=== PATIENT | female | born 1955 | race Caucasian/White ===

== ENCOUNTER 2022-07-11 03:47 | Emergency (ER) | payer OTHER, SELFPAY ==
[2022-07-11 04:03] VITALS: BP 137/78; PULSE 81; RESP 18; TEMP 36.6; O2SAT 98; BMI 29.3
--- NOTE | 2022-07-11 05:32 | ED_ITS ---
HPI - General Adult General Chief complaint: Allergic Reaction Stated complaint: swollen face/hives, possible allergic reaction Time Seen by Provider: 07/11/22 05:23 Source: patient Mode of arrival: ambulatory Limitations: no limitations History of Present Illness HPI narrative: 67-year-old female who presents emergency department for evaluation of redness to the cheeks of her face. She states that she 1st noted the redness to her left cheek. She thought that maybe she was bitten by a bug but did not remember or see any insects. She states that the redness has spread from the left cheek to the right cheek. She states that the redness is very warm to the touch and is slightly painful. She has been applying ice without any relief of her symptoms. She denied headache, nausea, vomiting, fatigue, fever or chills. Related Data Previous Rx's Medication Instructions Recorded cephalexin 500 mg capsule 500 mg PO QID 5 days #20 caps 07/11/22 doxycycline hyclate 100 mg tablet 100 mg PO Q12H 5 days #10 tabs 07/11/22 Allergies Allergy/AdvReac Type Severity Reaction Status Date / Time amoxicillin [Augmentin] Allergy Unknown rash Verified 01/20/19 00:00 clavulanic acid [Augmentin] Allergy Unknown rash Verified 01/20/19 00:00 Penicillins [PENICILLINS] Allergy Unknown RASH/HIVES Unverified 11/22/19 15:36 Review of Systems Review of Systems: Yes all other systems are reviewed and are negative [facility] Past Medical History [facility] Narrative: Past medical history: None. Social history: She denies tobacco, alcohol and drug use. Social History Social History Advance Directives: No Advance Directives Information Provided: Yes Physical Exam ED Vital Signs: Vital Signs - 24 hr 07/11/22 04:03 Temperature 97.9 F Pulse Rate 81 Respiratory Rate 18 Blood Pressure 137/78 Pulse Oximetry 98 Oxygen Delivery Method Room Air BMI result Body Mass Index 29.3 Vital signs were normal. General: Awake, alert, female patient, very pleasant, in no distress HEENT: Patient's head is normal cephalic and atraumatic pupils were equal round reactive light, sclera contact however normal, mouth revealed moist membranes Face: The patient has erythema to the left and right zygomatic area is very face, the erythema is warm to the touch, there is no induration or flocculence, there is no breakdown of her skin. Neck: No adenopathy, supple Medical Decision Making Medical Decision Making MDM Narrative: 67-year-old female who presents emergency department for evaluation of bilateral erythema to her face which started yesterday and got progressively worse this morning. The patient did not recount any insect bite. Patient's exam did reveal a erythema with increased warmth both cheeks left greater than right with no evidence of an abscess. Patient's presentation is consistent with cellulitis. The patient was given doxycycline 100 mg orally and Keflex 500 mg orally. She was given a prescription for doxycycline 100 mg q.12 hours x5 days and Keflex 500 mg 4 times a day for 5 days. She was advised to apply heat to her cheeks for for 10-15 minutes 4 to 6 times a day. She was given printed and verbal instructions and cellulitis and discharged home. Differential Diagnosis Differential diagnosis includes but is not limited to cellulitis, allergic reaction, insect bite, contact dermatitis, nonspecific dermatitis Discharge Plan Discharge Clinical Impression: Cellulitis of face Patient Disposition: Home, Self-Care Instructions: Cellulitis (ED) Additional Instructions: Cellulitis Discharge Instructions You have an infection of your skin. This is called cellulitis. This is usually caused by bacteria on your skin that gets under your skin and then causes the infection Take Keflex 500 mg pills, 1 pill 4 times a day for 5 days. Take doxycycline 100 mg, 1 pill every 12 hours for 5 days These medications are antibiotic that should help your body fight off the infection. Apply heating pad on low or a warm compress for 15 minutes, 4-6 times a day. This will increase the blood flow to the area and will bring white blood cells to the area which will help your body fight off the infection. Take Motrin(ibuprofen) 200mg pills, 2 pills every 6 hours as needed for pain. Also take Tylenol( acetaminophen) 325 mg pills, 2 pills every 4 hours as needed for pain. Signs of worsening infection include fever, chills, weakness, increased pain, increased redness, increased swelling or red streaks going away from the area of infection. If you develop any of these symptoms or any other symptoms that are concerning to you, see your doctor immediately or return to the Emergency Department. Follow up with your doctor in 3 days for a recheck Please read the other printed instructions that we printed for you. Prescriptions: New cephalexin 500 mg capsule 500 mg PO QID 5 Days Qty: 20 0RF doxycycline hyclate 100 mg tablet 100 mg PO Q12H 5 Days Qty: 10 0RF
[2022-07-11] MEDS: Doxycycline Monohydrate 100 MG CAPSULE PO (05:50)
[2022-07-11] MEDS: cephALEXin 500 MG CAPSULE PO (05:50)
== END 2022-07-11 05:56 | disposition home or self-care (01) ==
PROVIDERS: Emergency Provider Emergency Medicine Emergency Medical Services
DX: L03.211 Cellulitis of face (principal); Z79.899 Other long term (current) drug therapy
CPT/HCPCS: 99283

== ENCOUNTER 2022-07-12 11:57 | Emergency (ER) | payer OTHER, SELFPAY ==
[2022-07-12 12:01] VITALS: BP 144/80; PULSE 90; RESP 19; TEMP 36.6; O2SAT 98; BMI 27.4
[2022-07-12 12:22] LABS: Basophils Absolute Auto 0.1 X10*3/uL (0.0-0.2); Basophils Percent Auto 0.7 % (0-2); Eosinophils Absolute Auto 0.1 X10*3/uL (0.0-0.4); Eosinophils Percent Auto 1.3 % (0-4); Hematocrit 41.3 % (37.0-47.0); Hemoglobin 13.7 g/dl (12.0-16.0); Imm Gran Abs Auto 0.01 X10*3/uL (0.00-0.03); Imm Gran Pct Auto 0.1 % (0.0-0.4); Lymphocytes Absolute Auto 2.2 X10*3/uL (1.2-4.9); Lymphocytes Percent Auto 31.9 % (20-40); MANUAL DIFF FLAG NO; Mean Corpuscular HGB Conc 33.2 g/dl (31.0-35.0); Mean Corpuscular Hemoglobin 29.8 pg (27.0-33.0); Mean Corpuscular Volume 89.8 fL (80.0-98.0); Mean Platelet Volume 9.8 fL (9.4-12.3); Monocytes Absolute Auto 0.4 X10*3/uL (0.1-1.2); Neutrophils Absolute Auto 4.1 x10*3/uL (2.0-8.3); Platelet Count 271 X10*3/uL (160-400); Red Cell Distribution Width 12.7 % (11.0-16.0); White Blood Count 6.8 X10*3/uL (4.8-10.8)
[2022-07-12 12:48] LABS: Anion Gap 16 (12-20); Blood Urea Nitrogen 16 mg/dL (9-16); Calcium 10.5 mg/dL (8.4-10.2); Carbon Dioxide 25 mmol/L (22-29); Chloride 106 mmol/L (96-108); Creatinine Clr Calc Pharmacy 53.6; Estimated Glomerular Filt Rate > 60; Glucose Random 92 mg/dL (60-115); Potassium 4.5 mmol/L (3.3-5.1); Sodium 142 mmol/L (135-145)
[2022-07-12 18:05] VITALS: BP 134/82; PULSE 87; RESP 16; TEMP 36.1; O2SAT 98
--- NOTE | 2022-07-12 18:07 | PC.NURSE ---
patient awake and alert. skin pwd. resp even and non labored. speaking in full, clear sentences. reports that she started on antibiotics yesterday at 6am for cellulitis on her left cheek r/t ?insect bite. patient reports that redness has spread since starting abt. facial erythema noted w/ slight left sided facial swelling. some areas of raised rash spread onto neck. reports rash is itchy and burning. awaiting initial physician steven.
--- NOTE | 2022-07-12 19:30 | ED_ITS ---
HPI - General Adult General Chief complaint: General Medical Stated complaint: Cellulitis Time Seen by Provider: 07/12/22 18:37 Source: patient Mode of arrival: ambulatory Limitations: no limitations History of Present Illness HPI narrative: 67-year-old female presents for facial redness and itchiness. Patient was bit by a bug on left side of her face and than redness spread and is also itchiness. Patient was seen yesterday and treated as cellulitis and given antibiotics. Patient returned today because skin is very itchy and only improves when taking Benadryl. Patient denies any swelling of lips, tongue, shortness of breath, neck swelling, or rash in extremity. Related Data Previous Rx's Medication Instructions Recorded cephalexin 500 mg capsule 500 mg PO QID 5 days #20 caps 07/11/22 doxycycline hyclate 100 mg tablet 100 mg PO Q12H 5 days #10 tabs 07/11/22 famotidine 20 mg tablet (Pepcid) 20 mg PO BID 7 days #14 tabs 07/12/22 prednisone 20 mg tablet 60 mg PO DAILY 5 days #15 tabs 07/12/22 Allergies Allergy/AdvReac Type Severity Reaction Status Date / Time amoxicillin [Augmentin] Allergy Unknown rash Verified 07/12/22 12:01 clavulanic acid [Augmentin] Allergy Unknown rash Verified 07/12/22 12:01 Penicillins [PENICILLINS] Allergy Unknown RASH/HIVES Verified 07/12/22 12:01 Review of Systems Review of Systems: facial redness Yes all other systems are reviewed and are negative PMFSH Social History Social History Alcohol intake: never Advance Directives: No Advance Directives Information Provided: Yes Physical Exam ED Vital Signs: Vital Signs - 24 hr 07/12/22 12:01 07/12/22 18:05 Temperature 98 F 96.9 F Pulse Rate 90 87 Respiratory Rate 19 16 Blood Pressure 144/80 H 134/82 Pulse Oximetry 98 98 Oxygen Delivery Method Room Air Room Air BMI result Body Mass Index 27.4 Const General: cooperative, healthy appearing, comfortable, no acute distress, well developed, alert, awake and Physically active Orientation/consciousness: oriented to person, oriented to place, oriented to time and patient oriented x3 HENMT Other: Negative for swelling of lips, tongue, or uvula. Patient speaking in full sentences Head: Yes normal to inspection, Yes No palpable skull fracture present, Yes normocephalic and Yes atraumatic Head images: 1. positive for erythema. Negative for crepitus, tenderness, mass, or swe lling on palpation. Negative for neck swelling. 2. positive for erythema. Negative for crepitus, tenderness, mass, or swelling on palpation. Negative for neck swelling. Neck Neck: Yes normal visual inspection, Yes full ROM, Yes no lymphadenopathy, Yes no meningeal signs, Yes trachea midline, Yes supple, No anterior neck swelling, No tender and No submandibular swelling Chest Chest palpation & inspection: normal inspection of the chest and normal palpation of entire chest wall Resp Effort & Inspection: normal respiratory effort and able to speak in complete sentences Auscultation: clear to auscultation bilaterally Cardio Jugular venous distension: no JVD Heart sounds: S1 normal heart sound present and S2 normal heart sound present GI Inspection: Yes normal to inspection and No abdominal wall ecchymosis Palpation (GI): Soft to palpation, not firm, nontender, no guarding and not rigid General: No CVA tenderness and Yes no CVA tenderness Back/Spine/Pelvis Back: no CVA tenderness, No CVA tenderness and No back tenderness Skin Other: erythema of face. itchy rash General skin exam: no rashes or lesions noted and elasticity normal Neuro General: oriented to person, oriented to place, oriented to time, patient oriented x3, gait normal, tone normal, moves all extremities, Normal light touch and pain sensation, no meningeal signs, no focal motor deficits, CN's II-XI intact bilaterally and normal sensation to monofilament Extrem General: Yes normal to inspection and Yes full ROM Psych Appearance: grossly normal, well kempt and not disheveled Course Course Course Narrative: facial erythema. Reevaluation(s) Reevaluation #1: this is patient's 2nd day taking antibiotics. Patient is well-appearing. Vital signs normal. Patient not in any respiratory distress. No need for admission. Negative for neck swelling or submandibular swelling. No crepitus o r tenderness on palpation of face. Not suspecting necrotizing fasciitis, erysipelas, osteomyelitis, retropharyngeal abscess, tony syed, or Davon angina. Patient informed to continue taking antibiotics as prescribed and will be discharged with prednisone and Pepcid. Patient informed to continue taking her [id number] Benadryl at home for itchiness. Negative for sloughing of skin.. Dr. Griffith agree with plan Medical Decision Making Medical Decision Making [facility] Narrative: 67-year-old female presents to the ED for re-evaluation of face. Patient knows cellulitis being treated with antibiotics. This is patient is day 2 of antibiotics. Erythema caused by insect bite and now patient complain of redness being itchy. Insect bite can cause allergic reaction and cellulitis. Patient informed to continue taking antibiotics and will be discharged with prednisone Pepcid and continue taking her home Benadryl. Patient not in any respiratory distress. Negative sloughing of skin Differential Diagnosis Differential Diagnoses: The differential diagnosis associated with the presentation includes ( Necrotizing fasciitis, osteomyelitis, cellulitis, allergic reaction, retropharyngeal abscess, Davon angina, Tony Syed syndrome,) Admission/Observation Consideration of admission/observation: Escalation of care including admission/observation considered Lab Data [facility] Lab Attestation statement: I reviewed the patient's lab results. 07/12/22 12:17 07/12/22 12:17 Labs: Lab Results 07/12/22 07/12/22 Range/Units 12:17 12:17 WBC 6.8 (4.8-10.8) X10*3/uL RBC 4.60 (4.20-5.50) X10*6/uL Hgb 13.7 (12.0-16.0) g/dl Hct 41.3 (37.0-47.0) % MCV 89.8 (80.0-98.0) fL MCH 29.8 (27.0-33.0) pg MCHC 33.2 (31.0-35.0) g/dl RDW 12.7 (11.0-16.0) % Plt Count 271 (160-400) X10*3/uL MPV 9.8 (9.4-12.3) fL Immature Gran % (Auto) 0.1 (0.0-0.4) % Neut % (Auto) 60.0 (45-73) % Lymph % (Auto) 31.9 (20-40) % Carter % (Auto) 6.0 (2-11) % Eos % (Auto) 1.3 (0-4) % Baso % (Auto) 0.7 (0-2) % Lymph # (Auto) 2.2 (1.2-4.9) X10*3/uL Carter # (Auto) 0.4 (0.1-1.2) X10*3/uL Eos # (Auto) 0.1 (0.0-0.4) X10*3/uL Baso # (Auto) 0.1 (0.0-0.2) X10*3/uL Abs Immat Gran (auto) 0.01 (0.00-0.03) X10*3/uL Absolute Neuts (auto) 4.1 (2.0-8.3) x10*3/uL Absolute Nucleated RBC 0.000 (0.0-0.012) X10*3/uL Nucleated RBC % (auto) 0.0 (0.0-0.2) /100WBC Sodium 142 (135-145) mmol/L Potassium 4.5 (3.3-5.1) mmol/L Chloride 106 (96-108) mmol/L Carbon Dioxide 25 (22-29) mmol/L Anion Gap 16 (12-20) BUN 16 (9-16) mg/dL Creatinine 0.92 (0.5-1.4) mg/dL Estim Creat Clear Calc 53.6 Estimated GFR > 60 Random Glucose 92 (60-115) mg/dL Calcium 10.5 H (8.4-10.2) mg/dL External Record Review External record reviewed: Outside ED record Prescription Management I considered prescription management with: Other (prednisone and pepcid.) Discharge Plan Discharge Clinical Impression: Allergic reaction, Cellulitis, Insect bite Patient Disposition: Home, Self-Care Instructions: Cellulitis (ED), Insect Bite or Sting (ED), General Allergic Reaction (ED), Warm Compress or Soak (ED) Additional Instructions: continue taking antibiotics he were prescribed. You will be discharged with prednisone and Pepcid to help with itchiness/allergic reaction. continue using over the counter benadryl. return to the ED immediately swelling of the lips, swelling of the tongue, swelling of the tongue, swelling of face, shortness of breath, drooling, swelling of the neck, inability to swallow, chest pain, shortness of breath, worsening redness, development of red streaks, intractable fever, chills, or any other concerning symptoms. Prescriptions: New prednisone 20 mg tablet 60 mg PO DAILY 5 Days Qty: 15 0RF famotidine [Pepcid] 20 mg tablet 20 mg PO BID 7 Days Qty: 14 0RF No Action cephalexin 500 mg capsule 500 mg PO QID 5 Days Qty: 20 0RF doxycycline hyclate 100 mg tablet 100 mg PO Q12H 5 Days Qty: 10 0RF Stand Alone Forms: Work/School Release Interventions: ED Discharge Assessment Last Done: 07/12/22 20:23 Discharge Date/Time: 07/12/22 20:23 Print Language: Hebrew
== END 2022-07-12 20:23 | disposition home or self-care (01) ==
PROVIDERS: Emergency Provider Internal Medicine; PCP Family Medicine
DX: L03.211 Cellulitis of face (principal); Z79.899 Other long term (current) drug therapy
CPT/HCPCS: 36415; 80048; 85025; 99283; 99284

== ENCOUNTER 2024-04-16 09:45 | Day surgery (SDC) | payer OTHER, SELFPAY ==
--- OUTSIDE RECORDS SUMMARY | 2024-03-21 09:47 | XMS_ITS | Data Portability ---
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 Plan of Treatment Reminders Order Date Submit Date Provider Last Modified By Organization Details Last Modified Time Details Appointments None recorded. Lab None recorded. Referral None recorded. Procedures None recorded. Surgeries None recorded. Imaging None recorded. Medication Orders Bactrim DS 800 mg-160 mg tablet 2022 023 ATHENAFAX [facility], [address] [place] [address], [phone], 3 18:40:35 mupirocin 2 % topical ointment 2022 023 ATHENAFAX [address], [address] [place] [address], [phone], 3 18:40:35 Patient TargetsNo targets recorded. Patient Instructions Encounter Date Encounter Id Patient Instructions Last Modified By Organization Details Last Modified Time 09/18/2022 [id number] skin abscess: care instructions [email or web address] Not available 09/18/2022 18:08:15 Apply a warm compress to the affected area for 15-20 minutes at a time up to 4 times a day. Not available 09/18/2022 17:24:00 Reason for Referral None Reported. Problems No Known Problems Medical Equipment None Reported. Allergies Allergen ID Allergen Name Allergen Category Reaction Reaction Severity Criticality Documentation Date Start Date Code Code System Note Provider Name and Address Organization Details Recorded Time [id number] Medicinal product containin g penicilli n and acting as antibacte rial agent (product) medicatio n angioedem a Not available Not available 09/18/2022 [id number] 05 SNOMED DIXON mittal [place] [facility] 17:28:31 Medications Name Sig Start Date Stop Date Status Note LastModified by Organization Details LastModified Time prednisone 20 mg tablet TAKE 3 TABS ORALLY DAILY FOR 5 DAYS 09/18 completed Not Available Not Available Not Available famotidine 20 mg tablet TAKE ONE TABLET BY MOUTH 2 TIMES A DAY FOR 7 DAYS 09/18 completed Not Available Not Available Not Available cephalexin 500 mg capsule TAKE 1 CAPSULE BY MOUTH 4 TIMES A DAY FOR 5 DAYS 09/18 completed Not Available Not Available Not Available mupirocin 2 % topical ointment APPLY A SMALL AMOUNT TO THE AFFECTED AREA BY TOPICAL ROUTE 3 TIMES PER DAY x 10 d 2022 active Not Available Not Available Not Avai lable doxycycline hyclate 100 mg tablet TAKE 1 TABLET BY MOUTH EVERY 12 HOURS FOR 5 DAYS 09/18 completed Not Available Not Available Not Available Bactrim DS 800 mg-160 mg tablet Take 1 tablet every 12 hours by oral route with meals for 10 days. 2022 active Not Available Not Available Not Avai lable Vitals Date Recorded Body height Body mass index (BMI) Body weight Oxygen saturation Oxygen saturation in Arterial blood by Pulse oximetry Heart rate Respiratory rate Body temperature Systolic blood pressure Diastolic blood pressure Provider Name and Address Organization Details Last Updated DateTime 3 160.02 cm 28.3 kg/m2 18716.7 8 g 99 % 99 % 89 /min 16 /min 98.2 [degF] 134 mm[Hg] 81 mm[Hg] DIXON MCCOY - [facility] 3 17:31:39 Social History Question Answer Notes LastModified by Organizat ion Details LastModified Time Tobacco Smoking Status Never Smoker DIXON mittal [place] [facility] 09/18/2022 17:29:20 What Is Your Level Of Alcohol Consumption? None Information not available 09/18/2022 Are You Currently Employed? Yes Information not available 09/18/2022 Do You Use Any Illicit Or Recreational Drugs? No Information not available 09/18/2022 Have You Recently Traveled Abroad? No Information not available 09/18/2022 Do You Or Have You Ever Used Any Other Forms Of Tobacco Or Nicotine? No Information not available 09/18/2022 Sex: Unknown Functional Status None recorded. Mental Status None recorded. Family History Relationship Description Onset Age of this Age Resolved Age Notes LastModified by Organization Details LastModified Time Mother Malignant neoplastic disease Not available 2022 17:29:02 Medical History No medical history recorded. Gynecological HistoryNo gynecological history recorded. Obstetrics History GPAL:G 0 P 0 0 0 0 Immunizations Vaccine Type Date Status Note Provider Nam e and Address Organization Details Recorded Time Influenza, split virus, quadrivalent, preservative 7 completed DIXON OLVIN null, [place] - [facility] 09/18/2022 17:29:29 Influenza, split virus, quadrivalent, preservative 8 completed DIXON OLVIN null, PA - [facility] 09/18/2022 17:29:29 Influenza, MDCK, quadrivalent, PF 6 completed DIXON OLVIN null, PA - [facility] 09/18/2022 17:29:29 zoster recombinant 0 completed DIXON OLVIN null, PA - [facility] 09/18/2022 17:29:29 zoster recombinant 9 completed DIXON OLVIN null, PA - [facility] 09/18/2022 17:29:29 COVID-19, mRNA, LNP-S, PF, 100 mcg/0.5mL dose or 50 mcg/0.25mL dose 1 completed DIXON OLVIN null, [place] - [facility] 09/18/2022 17:29:30 COVID-19, mRNA, LNP-S, PF, 100 mcg/0.5mL dose or 50 mcg/0.25mL dose 1 completed DIXON OLVIN null, [place] - [facility] 09/18/2022 17:29:30 COVID-19, mRNA, LNP-S, PF, 100 mcg/0.5mL dose or 50 mcg/0.25mL dose 1 completed DIXON OLVIN null, [place] - [facility] 09/18/2022 17:29:30 Pneumococcal conjugate PCV20, polysaccharide [id number] conjugate, adjuvant, PF 2 completed DIXON OLVIN null, [place] - [facility] 09/18/2022 17:29:30 Influenza, split virus, trivalent, preservative 2 completed DIXON OLVIN null, [place] - [facility] 09/18/2022 17:29:30 Influenza, split virus, quadrivalent, PF 9 completed DIXON OLVIN null, [place] - [facility] 09/18/2022 17:29:30 Past Encounters Encounter ID Performer Location Encounter Start Date Encounter Closed Date Diagnosis/Indication Diagnosis SNOMED-CT Code Diagnosis ICD10 Code Diagnosis Note [id number] [address] [address] [address] 10/19/2015 11:07:55 10/19/2015 11:52:00 [id number] [place] [address] [address] [address] 09/18/2022 17:14:59 09/18/2022 18:18:21 Abscess of skin and/or subcutaneous tissue 05464436 L02.91 New abscess with surroundin g celulitis. Unable to I&Drecomme nd warm compresses soaks 5-10 min 4-5 x.dwill Rx oral antibiotic s - has PCN allergy will Rx bactrimtop ical bactrobanI BU prn painkeep area clean and dry she has f/u with her PCP this week - I advised her to attend the appt. She should have an US of the axilla.f/u prn WORSENING Sx, increased erythema/p ain/fever etc.She should be referred to Gen Surg by her PCP prn no improvemen t to have I&D Discussed concerning red flags with patient and reasons to follow up in the Emergency Department urgently. Health Concerns Section Related Observation LastModified by Organization Sommer blanchard LastModified Time None Recorded Concern Status LastModified by Organization Details LastModified Time None Recorded Advance Directives Directive None Recorded Payers Encounter Date Sequence Insurance Name Policy Number Policy Smith Covered Member ID Smith Member ID Guarantor Name 10/19/2015 2 [facility] [id number] Elaina Blanca Perez [id number] Elaina Perez 09/18/2022 1 [facility] (PP[facility] Elaina Perez [id number] Elaina Perez Notes Date Note Type Note Provider Name and Address Organization Details Recorded Time 09/18/2022 text/html AbscessReported bypatient.Notes:67 yo female c/o red, swollen bump under left armpit x 3 d bikes to work every day and noticed it a few days agored, warm and tenderno bleeding or d/cno f/c/n/v no OTC meds but tried warm compresses reports last mammogram was 2-3 m ago Jamar Everett, DO [address] [place], [id number], [place] - [facility] 09/18/2022 18:38:05 OBGyn Episode No OBEpisode recorded.
--- OUTSIDE RECORDS SUMMARY | 2024-03-21 09:47 | XMS_ITS | Continuity of Care Document ---
Author Organization [facility] Address [address] [place] [address] [address] [place] [address]- Care Team Providers Care Expressive Music Therapist Name Role Phone Chuckie NELSON, Paco Carrera Primary Care Physician Encounter [facility] [place] Date(s): 01/30/24 - 02/29/[address] [place] [address]- Attending Physician: Cassius Srinivasan Admitting Physician: AdmCassius pollock Referring Physician: Admtr [id number] Encounter Type: Triage Allergies, Adverse Reactions, Alerts Substance Criticality Severity Reaction Reaction Severity Status penicillin hives Active Bactrim DS Skin rash Skin rash Active Immunizations Given and Recorded Vaccine Date Status Refusal Reason influenza virus vaccine, inactivated 01/19/24 Glen rded influenza virus vaccine, inactivated 12/07/22 Glen rded influenza virus vaccine, inactivated 12/04/21 Give n influenza virus vaccine, inactivated 12/06/18 Glen rded influenza virus vaccine, inactivated 02/23/18 Glen rded influenza virus vaccine, inactivated 11/25/16 Glen rded influenza virus vaccine, inactivated 01/07/16 Glen rded RSV vaccine, preF A-preF B, recombinant 12/13/22 R ecorded pneumococcal 20-valent conjugate vaccine 11/17/21 Given SARS-CoV-2 (COVID-19) mRNA-1273 vaccine 03/05/21 R ecorded SARS-CoV-2 (COVID-19) mRNA-1273 vaccine 05/26/20 G iven SARS-CoV-2 (COVID-19) mRNA-1273 vaccine 04/28/20 G iven Influenza Virus Vaccine (oldterm) 1 10/31/19 Recor ded Influenza Virus Vaccine (oldterm) 2 12/14/07 Given tetanus/diphtheria/pertussis, acel(Tdap) 3 09/04/19 Given zoster vaccine, inactivated 05/05/19 Recorded zoster vaccine, inactivated 02/27/19 Recorded 1Result Comment: [facility] Pharm[facility] 2Admin Note: MANU : SANOFI PASTEUR Pt meets criteria Given w/o incident Pt denies allergies and cold/flu symptoms 3Result Comment: [facility] [id number] EXP 10/12/20 Medications Flonase Allergy Relief 50 mcg/inh nasal spray See Instructions, 1 sprays Daily in each nostril, # 16 Gm, 0 Refills, Maintenance, 05/24/23 9:29:00 AM EDT, [facility]/pharmacy #[id number], Partial fill upon patient request if the prescription is for a schedule II opioid drug., 156, cm, 11/01/22 8:45:00 EDT, Height Start Date: 05/24/23 Status: Ordered Quantity: 16.0 Unit: g Repeat number: 1 Indication: Viral infection, unspecified Fosamax 70 mg oral tablet 1 tablet = 70 mg, By Mouth, Every week, # 12 tablet, 3 Refills, Maintenance, 12/02/23 11:29:00 AM EDT, Tablet, [facility]/pharmacy #[id number], Partial fill upon patient request if the prescription is for a schedule II opioid drug., 155.1, cm, 12/02/23 10:55:00 EDT, Height Start Date: 12/02/23 Status: Ordered Quantity: 12.0 Unit: tablet Repeat number: 4 Osteo Bi-Flex 1 tablet, By Mouth, Daily, 0 Refills, Maintenance, 12/02/23 10:52:00 AM EDT, Partial fill upon patient request if the prescription is for a schedule II opioid drug. Start Date: 12/02/23 Status: Ordered Repeat number: 1 Vitamin B Complex oral tablet, extended release 0.5 tablet, By Mouth, Daily, 0 Refills, Maintenance, 12/02/23 10:50:00 AM EDT, Partial fill upon patient request if the prescription is for a schedule II opioid drug. Start Date: 12/02/23 Status: Ordered Repeat number: 1 Vitamin C 1 tablet, By Mouth, Daily, 0 Refills, Maintenance, 10/28/21 3:02:00 PM EDT, Partial fill upon patient request if the prescription is for a schedule II opioid drug. Start Date: 10/28/21 Status: Ordered Repeat number: 1 Vitamin D3 oral tablet 1 tablet = 10 mcg, By Mouth, Daily, # 30 tablet, 0 Refills, Maintenance, 12/02/23 10:51:00 AM EDT, Tablet, Partial fill upon patient request if the prescription is for a schedule II opioid drug. Start Date: 12/02/23 Status: Ordered Quantity: 30.0 Unit: tablet Repeat number: 1 Wegovy (0.25 mg dose) subcutaneous solution = 0.25 mg, Subcutaneous Infusion, Every 7 days, # 2 mL, 5 Refills, Acute 12/01/24 11:40:00 AM EDT, 12/02/23 11:39:00 AM EDT, [facility]/pharmacy #[id number], Partial fill upon patient request if the prescription isfor a schedule II opioid drug., 155.1, cm, 12/02/23 10:55:00 EDT, Height Start Date: 12/02/23 Stop Date: 12/01/24 Status: Ordered Quantity: 2.0 Unit: mL Repeat number: 6 Problem List Condition Confirmation Course Effective Dates Status Health Status Informant Anxiety disorder Confirmed Active Basal cell carcinoma of skin Confirmed Active Sigmoid diverticulosis Confirmed Active Hypercholesterolemia - ASCVD risk 3.8% 09/05/2019 Confirmed Active Internal hemorrhoids Confirmed Active Obese class I Confirmed Active Postmenopausal state Confirmed Active Viral illness Confirmed Active Social History Social History Type Response Smoking Status Never (less than 100 in lifetime) entered on: 08/27/19 Sex Sex Representation Female (finding) Patient Care team information Care Team Personnel Name: Paco Noguera MD Position: S Physician - Primary Care Member Role: PCP [address]: [address] [place] [address], [place] [address]- [place] Telecom: Care Team Related Persons Name: MITRA ARREGUIN Insurance Providers Guarantor name: AUNG PERRI [facility] Information #: 1 Payer: DEEPAK ZAFAR P Member Number: NA Policy Number: NA Group Number: NA
[2024-04-12 14:32] VITALS: BMI 29.9
--- NOTE | 2024-04-13 10:48 | HO.ANESPROP2 ---
Documented by User: Vira Waller NP 04/13/24 10:48 HPI - Anesthesia Eval Consult details Narrative: 68yo F for Colonoscopy [facility] Past Medical History Medical History No pertinent past medical history Surgical History Surgical History H/O colonoscopy Social History Social History Are you a primary manager care management to a significant other at home: No Do you presently have visiting nurse or other home services: No Alcohol intake: never Patient Tobacco Use Status: Never used Tobacco Second Hand Smoke Exposure: No Use of substances other than those prescribed or required for medical reasons: No Have you been hit, kicked, punched, or otherwise hurt by someone within the past year? If so, by whom?: No Are you DNR?: No Advance Directives: No Advance Directives Information Provided: Yes Advance Directives on File: No Recently lost weight without trying: No Eating poorly because of decreased appetite: No Nutrition Risks: No Nutritional Risk Patient : No : No Poor oral hygiene: No Meds Allergies Allergy/AdvReac Type Severity Reaction Status Date / Time amoxicillin [Augmentin] Allergy Intermediate rash Verified 04/12/24 14:33 clavulanic acid [Augmentin] Allergy Intermediate rash Verified 04/12/24 14:33 Penicillins [PENICILLINS] Allergy Intermediate RASH/HIVES Verified 04/12/24 14:33 Home Medications ?Medication ?Instructions ?Recorded ?Confirmed ?Last Taken ?Type No Known Home Meds 04/13/24 04/13/24 Unknown History Exam Height,Weight and Vital Signs: Height 5 ft 3 in Weight 76.657 kg Assessment and Plan Assessment Anesthesia Assessment: Chart Reviewed Documented by User: Mery Valencia MD 04/16/24 11:11 [facility] Past Medical History Medical History No pertinent past medical history Family History Family history of problems with anesthesia: No Surgical History Surgical History H/O colonoscopy History of Problems with Anesthesia: No Social History Social History Are you a primary manager care management to a significant other at home: No Do you presently have visiting nurse or other home services: No Alcohol intake: never Patient Tobacco Use Status: Never used Tobacco Second Hand Smoke Exposure: No Use of substances other than those prescribed or required for medical reasons: No Have you been hit, kicked, punched, or otherwise hurt by someone within the past year? If so, by whom?: No Are you DNR?: No Advance Directives: No Advance Directives Information Provided: Yes Advance Directives on File: No Recently lost weight without trying: No Eating poorly because of decreased appetite: No Nutrition Risks: No Nutritional Risk Patient : No : No Poor oral hygiene: No Meds Allergies Allergy/AdvReac Type Severity Reaction Status Date / Time amoxicillin [Augmentin] Allergy Intermediate rash Verified 04/12/24 14:33 clavulanic acid [Augmentin] Allergy Intermediate rash Verified 04/12/24 14:33 Penicillins [PENICILLINS] Allergy Intermediate RASH/HIVES Verified 04/12/24 14:33 Home Medications ?Medication ?Instructions ?Recorded ?Confirmed ?Last Taken ?Type No Known Home Meds 04/13/24 04/13/24 Unknown History Exam Height,Weight and Vital Signs: Height 5 ft 3 in Weight 76.657 kg Vital Signs Temp Pulse Resp BP Pulse Ox O2 Del Method 04/16/24 10:30 98.7 F 82 16 132/65 98 Room Air Airway Mallampati Class: I TM Dist: >3cm Neck ROM: Full Loose/Missing/Broken Teeth: Yes ([place] teeth extracted. Denies broken or loose teeth) Heart: RRR Lungs: CTAB Assessment and Plan Assessment Anesthesia Assessment: Anesthesia Plan Discussed and Chart Reviewed Final Anesthetic Review Family History of Problems with Anesthesia: No History of Problems with Anesthesia: No NPO: Yes ASA Class: I Final Preanesthetic Review: No Changes in Pt Med Stat, Meds/Allgs Chart Reviewed, Consent Obtained/Reviewed and Anes Risks/Benef Reviewed Patient Risk: Low Procedure Risk: Low Assessment/Block/Sedation in SS: Assess/Block/Sedation-SS Anesthetic Plan Anesthetic Plan: TIVA Disposition: Standard PACU
[2024-04-16 10:20] VITALS: BMI 30.5
[2024-04-16 10:30] VITALS: BP 132/65; PULSE 82; RESP 16; TEMP 37.1; O2SAT 98
--- OUTSIDE RECORDS SUMMARY | 2024-04-16 10:33 | XMS_ITS | Patient Health Record ---
Author Organization [facility] Address [address] [place] [address] Care Team Providers Care Marketing Systems Analyst Name Role Phone Paco Noguera Primary Care Provider Tj Richmond [phone] ALLERGIES Allergen (clinical drug ingredient) Drug/Non Drug Allergy documented on EMR Reaction Allergy Type Onset Date Status Penicillin Unknown Drug Allergy Active REASON FOR REFERRAL No Information SOCIAL HISTORY Sex Assigned At : Social History Observation Description Sex Assigned At Unknown PROBLEMS Problem Type ICD Code Onset Dates Problem Status W/U Status Risk SNOMED Code Notes Problem Colon cancer screening (Z12.11) Active confirmed Colon cancer screening (090598098) Problem Encounter for other preprocedural examination (Z01.818) Active confirmed Pre-procedure evaluation check (329844498) VITAL SIGNS Blood pressure diastolic 00 mm Hg 02/23/2024 Height 63 in 02/23/2024 Blood pressure systolic 00 mm Hg 02/23/2024 Weight 169 lbs 02/23/2024 BMI 29.93 kg/m2 02/23/2024 Encounters Encounter Location Date Provider Diagnosis [facility] [address] [place], [place] [id number] 2024 Tj Griffin [facility] [address] [place] [address] 02/23/2024 Tj Olvera Colon cancer screeni ng Z12.11 and Encounter for other preprocedural examination Z01.818 ASSESSMENTS Encounter Date Diagnosis Assessment Notes Treatment Notes Treatment Clinical Notes 02/23/2024 Colon cancer screening (ICD-10 - Z12.11) 02/23/2024 Encounter for other preprocedural examination (ICD-10 - Z01.818) PLAN OF TREATMENT Future Test Test Name Order Date COLONOSCOPY 08/01/2013 COLONOSCOPY 02/23/2024 Next Appt Details Provider Name:Tj Olvera , 2024 11:00:00 AM, [address] [place] [address] , [place], [place], [id number], Insurance Providers Payer Name Payer Address Payer Phone Subscriber Number Group Number Insured Name Patient Relationship to Insured Coverage Start Date Coverage End Date [facility] [address] [place] [address] [id number] AUNG RAYO Self - patient is the insured MEDICAL (GENERAL) HISTORY Medical History History ICD Code Denies AL,DM,CVA,Lung disease,renal dise ase Reports a negative colonoscopy at age 49 Negative screening colonoscopy in 11/2013 Surgical History Surgery Date(Month/Year) Removal of a Fallopian tube
--- OUTSIDE RECORDS SUMMARY | 2024-04-16 10:34 | XMS_ITS ---
Author Organization [facility] Address [address] [place] [address] Care Team Providers Care Esl Teacher Name Role Phone Paco Noguera MD Primary Care Provider Unava ilTiffani Giordano Unavailable [phone] REASON FOR VISIT SINGLE STAYER OPERATOR PPWK Entered Encounters Encounter Location Date Provider Diagnosis [facility] [address] [place] [address] 12/14/2022 Tiffani Salcedo Plan Of Treatment No Information Progress Notes * Elaina RAYO ADOB:[birth year] (67 yo F)Acc No.[id number]:12/14/2022 Patient:?Elaina Rayo :1955???Age:67 Y???Sex:Female Address:[address] [place] [address] * true * Date:? Generated for Printi bert/Edgar/eTransmitting on:?2024 10:34 AM EST
--- OUTSIDE RECORDS SUMMARY | 2024-04-16 10:34 | XMS_ITS ---
Author Organization [facility] Address [address] [place] [address] Care Team Providers Care Quality Review Specialist Name Role Phone Paco Noguera MD Primary Care Provider Tiffani Gardner Unavailable [phone] Allergies Allergen (clinical drug ingredient) Drug/Non Drug Allergy documented on EMR Reaction Allergy Type Onset Date Status sulfamethoxazole / trimethoprim Bactrim hives Drug Allergy Active Cortisone reddish Drug Allergy Active Penicillin hives Drug Allergy Active REASON FOR VISIT PCP - 10/2022, Skin Problem Social History Tobacco Use: Social History Observation Description Date Details (start date - stop date) Former Smoker NA - NA Tobacco Use/Smoking Question Answer Notes Are you a: former smoker Additional Findings: Tobacco Non-User Current no n-smoker Alcohol Screen Question Answer Notes Did you have a drink containing alcohol in the p ast year? No Points 0 Interpretation Negative Tobacco use other than smoking: Question Answer Notes Are you an other tobacco user? No Problems Problem Type SNOMED Code ICD Code Onset Dates Problem Status W/U Status Risk Notes Problem 960688707 Hammer toe of right foot (M20.41) Active confirmed Problem 202403377 Hammer toe of left foot (M20.42) Active confirmed Vital Signs Height 5 ft 3 in in 01/21/2023 Weight 160 lbs 01/21/2023 BMI 28.34 kg/m2 01/21/2023 Encounters Encounter Location Date [facility] [address] [place] [address] 01/21/2023 Tiffani Salcedo Ganglion of foot, left M67.472 ; Pain in left foot M79.672 ; Hammer toe of right foot M20.41 and Hammer toe of left foot M20.42 Assessments Encounter Date Diagnosis (ICD Code) Assessment Notes Treatment Notes Treatment Clinical Notes Section Notes 01/21/2023 Ganglion of foot, left (ICD-10 - M67.472) 01/21/2023 Pain in left foot (ICD-10 - M79.672) 01/21/2023 Hammer toe of right foot (ICD-10 - M20.41) 01/21/2023 Hammer toe of left foot (ICD-10 - M20.42) Plan Of Treatment Next Appt Details Follow Up: prn, Reason: Procedure Notes * Category Sub-Category Detail Notes Aspiration Indication Symptomatic Gang lion/Cyst Prep The skin was prepped with alcohol with aseptic technique Anesthesia Topical cryo Guidance Palpation Aspiration We advanced a steril e 18 gauge needle into the area for fluid collection Yield We aspirated a small amount of fluid (0.25cc), The fluid was clear gelatinous mixed with mild amount of blood Effect The procedure succes sfully decompressed the fluid collection and should relieve discomfort Disposition The patient tolerate d the procedure and anesthesia well and left the office alert and stable and in good condition. The wound was dressed with a dry sterile dressing, Follow-up as in Plan () Progress Notes * Elaina RAYO ADOB:[birth year] (67 yo F)Acc No.[id number]:01/21/2023 Progress Notes Patient:?Elaina Rayo Provider:?Tiffani Salcedo DPM :1955???Age:67 Y???Sex:Female D ate:01/21/2023 Address[address] [facility] [id number] Pcp:Paco Noguera MD Subjective: * Chief Complaints: * ???PCP - 10/2022Skin Problem * HPI: ???Skin problems:?Nature:?Lump.?Location:?Top Midfoot Left .?Duration:?several months.?Onset/Cause:?sudden unknown.?Course:?unchanged.?Treatments:?none.? * ROS:?General/Constitutional:?Nausea?denies.?Vomiting?denies.?Hunger Thirst?denies.?Loss appetite?denies.?Chills?denies.?Fatigue?denies.?Fever?denies.?Night Sweats?denies.?Unexplained weight loss?denies.?Unexplained weight gain?denies.?HEENTM:?Dentures?denies.?Dizziness?denies.?Glasses/contacts?admits.?Retinopathy?de nies.?Blurred/double vision?denies.?TMJ?denies.?Discharge/drainage?denies.?Implants?denies.?Sore throat?denies.?Dental implants?denies.?Hard of hearing ?denies.?Difficulty chewing/swallowing/speaking?denies.?Nose bleeds?denies.?Sore mouth?denies.?Respiratory:?On Oxygen?denies.?Pneumonia/pleurisy?denies.?Bronchitis?denies.?Emphysema?denies.?C oughing?denies.?Cough blood?denies.?Shortness of breath?denies.?Wheezing?denies.?Cardiovascular:?Pacemaker?denies.?MVP?denies.?WPW?denies.?CHF?denies.?Heart attack?denies.?Septal defect?denies.?Rapid beat?denies.?Chest pain ?denies.?Atrial Fib.?denies.?Murmur/Palpitations?denies.?Gastrointestinal:?Hemorrhoids?denies.?Stomach/Abdominal pain?denies.?Dark blood stool?denies.?Irritable bowel ?denies.?Constipation?denies.?Diarrhea?denies.?Hematology:?Swelling?denies.?Clots?denies.?Varicose Veins?denies.?Bruising?denies.?Bleeding problem?denies.?Genitourinary:?Blood urine?denies.?Frequent/Painfu/urination/bladder control?denies.?Kidney stones?denies.?Infection (UTI)?denies.?Nephropathy?denies.?sex trans dis (STD)?denies.?Prostate?denies.?Musculoskeletal:?Hammertoes?denies.?Bunions?denies.?Back Pain?denies.?Muscle Cramps/ Resting?denies.?Muscle cramps / walking?denies.?Generalized aches and pains?denies.?Weakness?denies.?Integ.:?Ventura?denies.?Scars?denies.?Corns/calluses?denies.?Ingrown nails?denies.?Painful nails?denies.?Open Sores?denies.?Rashes?denies.?Neurologic:?Difficulty sleeping?denies.?Brain disorder?denies.?Numbness?denies.?Balance trouble?denies.?Confusion?denies.?Fainting/blackouts?denies.?Tingling?denies.?Tr emors?denies.? * Medical History:? * Surgical History:?Denies Pas t Surgical History * Hospitalization/Major Diagno stic Procedure:?Denies Past Hospitalization * Family History:?Mother: jim ellis, diagnosed with Unspecified essential hypertension.?Father: .? * Social History:?Tobacco Use:?Tobacco Use/Smoking?Are you a:?former smoker ?Additional Findings: Tobacco Non-User?Current non-smoker ?Tobacco use other than smoking?Are you an other tobacco user??No ???Drugs/Alcohol:?Drugs?Have you used drugs other than those for medical reasons in the past 12 months??No ?Alcohol Screen?Did you have a drink containing alcohol in the past year??No ?Points?0 ?Interpretation?Negative ???Miscellaneous:?Caffeine: yes, frequency: , 1-2 cups per day. ?no Children. ?no Exercise, walking, line dancing. ?Marital status: . * Medications:?None * Allergies:?Penicillin: hives Bactrim: hivesCortisone: reddishyes[Allergies Verified] Objective: * Vitals:?Ht: 5 ft 3 in, Wt:16 0, BMI:28.34, Shoe size: 7.5, Ht-cm: 160.02 cm, Wt- k.57 kg. * Examination: ???General Examination: ?GENERAL APPEARANCE:?Reveals a pleasant, alert, well-nourished, well- developed, well hydrated individual, who demonstrates proper attention to hygiene/body habitus, and is in no acute distress, Pt serves as own?historian for office visit today.?ORIENTED:?person, place, and time.?Neurological: ?SENSORY:?Neurological exam reveals intact sensorium, pain sensation normal, vibration sensation intact, pinprick sensation is normal in the lower extremities, Pt denies, anesthesia, burning, paresthesia, tingling, B/L.?DEEP TENDON REFLEXES:?Achilles, 2/4, B/L.?Vascular: ?DP PULSES:?3/4, B/L.?PT PULSES:?3/4, B/L.?CAPILLARY FILL TIME:?immediate, all digits, B/L.?SKIN TEMPERTURE GRADIENT OF THE LOWER EXTERMITIES:?warm to cool, proximal to distal, B/L.?HAIR GROWTH/TEXTURE/ELASTICITY/TURGOR:?normal, B/L.?PIGMENTATION:?normal, B/L.?EDEMA:?absent, B/L.?Dermatologic: ?SKIN FINDINGS:?Skin exam reveals normal texture, elasticity, and turgor.? The interspaces are clear , Skin shows sign(s) of, a semi-firm, painful, non- translucent, non-pulsatile, nonmobile Sub Q tumor prema. 5x 5x 5mm.?Orthopedic: ?MUSCLE STRENGTH:?5/5 all groups in a symmetrical fashion , B/L.?DIGITAL DEFORMITIES:? Digital contracture, PIPJ, 2-5 B/L, reducible with WB, or to push-up test, no over, nor underlapping.? Assessment: * Assessment: 1.?Pain in left foot - M79.6 72 (Primary), Acute problem, Uncomplicated (3)?2.?Ganglion of foot, left - M67.472?3.?Hammer toe of right foot - M20.41?4.?Hammer toe of left foot - M20.42? Plan: * Treatment: * Procedures:?Aspiration:?Indication?Symptomatic Ganglion/Cyst.?Prep?The skin was prepped with alcohol with aseptic technique.?Anesthesia?Topical cryo.?Guidance?Palpation.?Aspiration?We advanced a sterile?18 gauge needle into the area for fluid collection.?Yield?We aspirated a small amount of fluid (0.25cc), The fluid was clear gelatinous mixed with mild amount of blood.?Effect?The procedure successfully decompressed the fluid collection and should relieve discomfort.?Disposition?The patient tolerated the procedure and anesthesia well and left the office alert and stable and in good condition. The wound was dressed with a dry sterile dressing, Follow-up as in Plan ().? * Procedure Codes:? ASPIR ATE/INJ GANGLION CYST * Preventive Medicine:? ??Counseling:?Discussion:?-03: Office or other outpatient visit for the evaluation and management of a new patient, which required a medically appropriate history and/or examination and LOW level of DECISION MAKING for: 1 STABLE ACUTE UNCOMPLICATED PROBLEM, 2 OR MORE MINOR PROBLEMS, OR 1 STABLE CHRONIC PROBLEM, THAT POSE(S) A LOW RISK FOR MORBIDITY/MORTALITY. The visit on the day of the encounter encompassed interpreting the data and educating the patient as to the nature of their condition, treatment options available according to their individual PMH, meds, allergies, and overall health/living conditions, as well as any potential risks or complications that may occur from a failure to adhere to, and participate in, the recommended course of therapy. The discussion included a complete verbal, and/or written explanation of the examination results, any x-rays taken, the proposed diagnosis, and outline of the treatment plan. A schedule for future care needs was also explained. The patient verbalized an understanding of the instructions at this time and agreed to be an active participant in their treatment. If the patient should think of any questions or concerns after the visit, I have encouraged the patient to call the office.?Ganglions:?The patient was counseled on the diagnosis, potential etiologies, and treatment options for their Ganglion condition. We discussed the risks and benefits of each option from performing no treatment, accomidative padding, aspiration, cortisone injection therapy, and surgical excision. We discussed the advantages and disadvantages of each possible treatment and importance for adherence to all the recommended therapies for optimum success and avoid potential complications such as open sore/infection/possible hospitalization. We discussed the potential effectiveness of each treatment as well as the potential complications including: pain, infection, and recurrence, and in the case of excision surgery: scarring, chronic pain, nerve damage resulting in permanent numbness, and recurrence. Patient questions re: successful outcomes for each treatment option, and the patient verbalized that all answers were clearly understood.?Shoe Gear Counseling:?The patient and I reviewed the types of shoes they should be wearing. My recommendation included obtaining a well-fitted shoe with a good supportive, non-foldable nor twistable sole, plenty of toe/room for the forefoot, and proper arch support. Based on todays examination, I recommended the patient look for new shoes, by having their feet professionally measured. We discussed that generally the best time of the day for a shoe fitting is the afternoon. Different shoes types and brands to best match the patients occupation and vocation were discussed. Specific brand selection will be up to the patient, their individual foot condition/deformities, and fit. The patient and I reviewed the standard new shoe break in period by wearing them for a few hours a day while checking for redness or sores as wear time is increased. The patient verbally confirmed to understanding the information discussed, Recommend supportive running shoes for patient, discussed various shoe brands including Mendez, Asics, New Balance, Saucony. Discussed types of shoes to avoid for patients foot type..? * Follow Up:?prn * Images: * Sign off status: Completed true * Provider:?Tiffani Salcedo, DPTj Date:? Generated for Lonny noel/Edgar/Tiannaitting on:?2024 10:33 AM EST History and Physical Notes * HPI (History of Present Illness) Category Sub-Category Detail Notes Category Not es Skin problems Nature: Lump Location: Top Midfoot Left Duration: several months Onset/Cause: sudden unknown Course: unchanged Treatments: none Examination Category Sub-Category Detail Notes Category Not es Neurological SENSORY: Neurological exa m reveals intact sensorium, pain sensation normal, vibration sensation intact, pinprick sensation is normal in the lower extremities, Pt denies, anesthesia, burning, paresthesia, tingling, B/L DEEP TENDON REFLEXES: Achilles, 2/4, B/L Dermatologic SKIN FINDINGS: Skin exam reveal s normal texture, elasticity, and turgor. The interspaces are clear , Skin shows sign(s) of, a semi-firm, painful, non-translucent, non-pulsatile, nonmobile Sub Q tumor prema. 5x 5x 5mm Orthopedic DIGITAL DEFORMITIES: Digital con tracture, PIPJ, 2-5 B/L, reducible with WB, or to push-up test, no over, nor underlapping MUSCLE STRENGTH: 5/5 all groups in a symmetrical fashion , B/L General Examination GENERAL APPEARANCE: Reveals a pleasant, alert, well- nourished, well-developed, well hydrated individual, who demonstrates proper attention to hygiene/body habitus, and is in no acute distress, Pt serves as own historian for office visit today ORIENTED: person, place, and t zane Vascular DP PULSES (B): 3/4, B/L PT PULSES (B): 3/4, B/L CAPILLARY FILL TIME: immediate, all digi ts, B/L TEMPERTURE GRADIENT (C): warm to cool, p roximal to distal, B/L TROPHIC CONDITION-TEXTURE/ELASTICITY/TURGOR/HAIR GROWTH (B): normal, B/L EDEMA (C): absent, B/L PIGMENTATION: normal, B/L
--- OUTSIDE RECORDS SUMMARY | 2024-04-16 10:34 | XMS_ITS | Data Portability ---
Author Organization [facility], [facility] Address [address] [place] [address] Care Team Providers Care Supervisor Correspondence Section Name Role Phone [facility] Primary Care Provide r Assessment No assessment recorded. Plan of Treatment Reminders Order Date Submit Date Provider Last Modified By Organization Details Last Modified Time Details Appointments None recorded. Lab None recorded. Referral None recorded. Procedures None recorded. Surgeries None recorded. Imaging None recorded. Medication Orders Bactrim DS 800 mg-160 mg tablet 2022 023 ATHENAFAX [facility], [address] [place] [address], [phone], 3 18:40:35 mupirocin 2 % topical ointment 2022 023 ATHENAFAX [facility], [address] [place] [address], [phone], 3 18:40:35 Patient TargetsNo targets recorded. Patient Instructions Encounter Date Encounter Id Patient Instructions Last Modified By Organization Details Last Modified Time 09/18/2022 [id number] skin abscess: care instructions [email or web address] Not available [...] Name and Address Organization Details Recorded Time [id number] Product containin g penicilli n and antibioti c (product) medicatio n angioedem a Not available Not available 09/18/2022 94160 05 SNOMED DIXON mittal PA - [facility] 17:28:31 Medications Name Sig Start [...] height Body mass index (BMI) Body weight Pain severity - 0-10 verbal numeric rating [Score] - Reported Oxygen saturation Oxygen saturation in Arterial blood by Pulse oximetry Heart rate Respiratory rate Body temperature Systolic blood pressure Diastolic blood pressure Provider Name and Address Organization Details Last Updated DateTime 3 160.02 cm 28.3 kg/m2 60567.7 8 g 4 99 % 99 % 89 /min 16 /min 98.2 [degF] 134 mm[Hg] 81 mm[Hg] DIXON OLVIN PA - [facility] 3 17:31:39 Social History Question Answer Notes LastModified by Organizat ion Details LastModified Time Tobacco Smoking Status Never Smoker DIXON VILLALPANDOKALEE mittal PA [place] [facility] 09/18/2022 17:29:20 [...] [facility] 09/18/2022 17:29:30 Pneumococcal conjugate PCV20, polysaccharide SED270 conjugate, adjuvant, PF 2 completed DIXON OLVIN [...] SNOMED-CT Code Diagnosis ICD10 Code Diagnosis Note [id number] [address] [address] [address] 10/19/2015 11:07:55 10/19/2015 11:52:00 [id number] Jamar Everett [place] [address] [address] [address] 09/18/2022 17:14:59 09/18/2022 18:18:21 Abscess of skin and/or subcutaneous tissue 09899138 L02.91 New abscess with surroundin g celulitis. [...] Smith Member ID Guarantor Name 10/19/2015 2 [facility] - OPEN ACCESS PLUS [id number] Elaina Perez [id number] Elaina Perez 09/18/2022 1 [facility]ULT[facility] (PPO) Elaina Perez [id number] Elaina Perez Notes Date Note Type Note [...] Everett, DO [address] [place], [address], [place] - [facility] 09/18/2022 18:38:05 OBGyn Episode No OBEpisode recorded.
--- OUTSIDE RECORDS SUMMARY | 2024-04-16 10:34 | XMS_ITS | Patient Health Record ---
Author [facility] Address [address] [place] [address] Care Team Providers Care Hand Model Name Role Phone Paco Noguera MD Primary Care Provider Tiffani Gardner Unavailable [phone] Allergies Allergen (clinical drug ingredient) Drug/Non Drug Allergy documented on EMR Reaction Allergy Type Onset Date Status sulfamethoxazole / trimethoprim Bactrim hives Drug Allergy Active Cortisone reddish Drug Allergy Active Penicillin hives Drug Allergy Active Reason For Referral No Information Social History Tobacco Use: Social History Observation [...] Problem Status W/U Status Risk Notes Problem 437147660 Hammer toe of right foot (M20.41) Active confirmed Problem 618781637 Hammer toe of left foot (M20.42) Active confirmed Plan Of Treatment No Information Insurance Providers Payer Name Payer Address Payer Phone Subscriber Number Group Number Insured Name Patient Relationship to Insured Coverage Start Date Coverage End Date [employer] [address] [place] [address] [id number] J Luis Mahoney Spouse - patient is the spouse of the insured Medical (General) History Medical History History ICD Code Measles Mumps Chicken pox
--- OUTSIDE RECORDS SUMMARY | 2024-04-16 10:34 | XMS_ITS ---
Author Organization [facility] Address [address] [place] [address] Care Team Providers Care Pole Inspector Name Role Phone Paco Noguera Primary Care Provider Tj Richmond [phone] ALLERGIES Allergen (clinical drug ingredient) Drug/Non Drug Allergy documented on EMR Reaction Allergy Type Onset Date Status Penicillin Unknown Drug Allergy Active REASON FOR VISIT Patient presents today for a SCREENING COLON PROBLEMS Problem Type ICD Code Onset Dates Problem Status W/U Status Risk SNOMED Code Notes Problem Colon cancer screening (Z12.11) Active confirmed Colon cancer screening (809373236) Problem Encounter for other preprocedural examination (Z01.818) Active confirmed Pre-procedure evaluation check (571016958) VITAL SIGNS BMI 29.93 kg/m2 02/23/2024 Blood pressure systolic 00 mm Hg 02/23/20 24 Blood pressure diastolic 00 mm Hg 024 Height 63 in 02/23/2024 Weight 169 lbs 02/23/2024 Encounters Encounter Location Date Provider Diagnosis [facility] [address] [place] [address] 02/23/2024 Tj Olvera Colon cancer screeni ng Z12.11 and Encounter for other preprocedural examination Z01.818 ASSESSMENTS Encounter Date Diagnosis Assessment Notes Treatment Notes Treatment Clinical Notes 02/23/2024 Colon cancer screening (ICD-10 - Z12.11) 02/23/2024 Encounter for other preprocedural examination (ICD-10 - Z01.818) PLAN OF TREATMENT Future Test Test Name Order Date COLONOSCOPY 02/23/2024 Next Appt Details Follow Up: prn, Reason: Provider Name:Tj Olvera , 2024 11:00:00 AM, [address] [place] [address] , [place], [place], [phone], Progress Notes * Examination Category Sub-Category Detail Notes General Examination GENERAL APPEARANCE: pleasant , well nourished, well developed, in no acute distress HEAD: EYES: sclera non-icteric EARS: NOSE: THROAT: NECK/THYROID: no cervical lymphade nopathy, neck supple HEART: S1, S2 normal CHEST: LUNGS: clear to auscultatio n bilaterally ABDOMEN: normal bowel sounds, no guarding or rigidity, no guarding or rigidity, no masses palpable, soft, nontender, nondistended NEUROLOGIC: alert and oriented SKIN: nonjaundiced, no spi jaci angiomata EXTREMITIES: no edema PERIPHERAL PULSES: BACK: BREASTS: MUSCULOSKELETAL: MALE GENITOURINARY: LYMPH NODES: RECTAL EXAM: FEMALE GENITOURINARY: ORAL CAVITY: mucosa moist
--- OUTSIDE RECORDS SUMMARY | 2024-04-16 10:34 | XMS_ITS ---
Author Organization [facility] Address [address] [place] [address] Care Team Providers Care Broommaker Name Role Phone Paco Noguera Primary Care Provider Tj Richmond Unavailable [phone] REASON FOR VISIT screening Encounters Encounter Location Date Provider Diagnosis [facility] Outpatient [address] [place] [id number] 2024 Tj Olvera PLAN OF TREATMENT Next Appt Details Provider Name:Tj Olvera , 2024 11:00:00 AM, [address] [facility] , [place], [place], [phone],
[2024-04-16] MEDS: Lactated Ringers 1,000 ML 100 ML IVCONT (10:36)
[2024-04-16 12:59] VITALS: BP 113/72; PULSE 78; RESP 22; TEMP 36.1; O2SAT 97
--- NOTE | 2024-04-16 13:02 | PM.OP ---
Brief Operative Note Date of Service: 04/16/24 Pre-op diagnosis: Screening Post-op diagnosis: other (Colon polyps) Procedure: Colonoscopy to the cecum and TI with hot snare polypectomy x 2 Surgeon: Tj Olvera MD Anesthesia: MAC Was an Network Support Administrator used for this Procedure?: No Estimated blood loss (mL): 0 Pathology: other (A. Distal ascending colon polyp B. Transverse colon polyp) Condition: stable Disposition: PACU
[2024-04-16 13:14] VITALS: BP 124/69; PULSE 78; RESP 22; TEMP -13.9; TEMP 7; O2SAT 97
--- NOTE | 2024-04-16 22:54 | OP_ITS ---
DATE OF SERVICE: 04/16/2024 SURGEON: Tj Olvera MD INDICATIONS: The patient presents for evaluation of colorectal cancer screening. Full consent has been obtained from her for this, including risks of bleeding and perforation. PREOPERATIVE DIAGNOSIS: Colorectal cancer screening. POSTOPERATIVE DIAGNOSIS: Colorectal cancer screening, colon polyps, diverticulosis, and internal hemorrhoids. PROCEDURE PERFORMED: Colonoscopy to the cecum and terminal ileum with hot snare polypectomy x2. ESTIMATED BLOOD LOSS: COMPLICATIONS: ANESTHESIA: Monitored anesthesia care. ASSISTANTS: SPECIMENS: DESCRIPTION OF PROCEDURE: The patient was placed in the left lateral decubitus position. The digital rectal exam revealed no abnormalities. The Olympus video pediatric colonoscope was entered into the rectum and advanced easily to the cecum. Once in the cecum, I did identify normal-appearing cecal pouch with appendiceal orifice and normal-appearing ileocecal valve. The terminal ileum was cannulated and appeared normal. Scope was withdrawn back in the colon. The entire cecum and ileocecal valve appeared normal, including the appendiceal orifice. The scope was then slowly withdrawn assessing all mucosal surfaces carefully. Preparation was excellent. The distal ascending colon and the transverse colon were flat, but raised approximately 10 to 12 mm polyps, which were both removed by hot snare polypectomy and recovered by suction. Both polypectomy sites appeared clean, without any sign of residual polyp nor bleeding. I did not visualize any other polyps, colitis, nor angiodysplasia. There was a mild amount of sigmoid diverticulosis. In the rectum, scope was retroflexed visualizing internal hemorrhoids, but no other pathology. The rectal mucosa appeared normal. Scope was straightened and withdrawn from the patient. She tolerated the procedure well and was returned to the recovery area in stable condition. IMPRESSION: 1. Colon polyps. 2. Diverticulosis. 3. Internal hemorrhoids. PLAN: If the polyps are either tubular adenomas, villous adenomas, or serrated polyps, I would recommend a repeat colonoscopy within 5 years for further screening and surveillance. If they are all have to be hyperplastic, then I would recommend that she not need any further screening colonoscopies given her age of 69. She was advised not to use any aspirin and NSAIDs for 1 week. She will otherwise see me on a p.r.n. basis. This has been discussed with her . MD DAGOBERTO Pham/BLAYNE / [phone]
== END 2024-04-16 13:45 | disposition home or self-care (01) ==
PROVIDERS: PCP Family Medicine; Visit Provider Internal Medicine
PROC: 0DJD8ZZ Inspection of Lower Intestinal Tract, Via Natural or Artificial Opening Endoscopic (ICD-10-PCS; CPT 45378; principal; 2024-04-16 12:10)
DX: Z12.11 Encounter for screening for malignant neoplasm of colon (principal); D12.3 Benign neoplasm of transverse colon; K57.30 Diverticulosis of large intestine without perforation or abscess without bleeding; K64.8 Other hemorrhoids
CPT/HCPCS: 45385; 88305; J2003; J2704

== ENCOUNTER 2025-02-25 14:06 | Outpatient (AMB) | payer OTHER, SELFPAY ==
--- OUTSIDE RECORDS SUMMARY | 2024-04-16 06:00 | XMS_ITS ---
Author Organization [facility] Address [address] [place] [address] Care Team Providers Care Show Dog Trainer Name Role Phone Paco Noguera Primary Care Provider Tj Richmond Unavailable [phone] REASON FOR VISIT screening Problems Problem Type SNOMED Code ICD Code Onset Dates Problem Status W/U Status Risk Notes Problem Diverticular disease of colon (426962507) Diverticulosis of large intestine without perforation or abscess without bleeding (K57.30) Active confirmed Encounters Encounter Location Date Provider Diagnosis [facility] [place] [address] [place], [place] [id number] 2024 Tj Olvera Colon cancer scree sia Z12.11 ; Colon polyps K63.5 ; Diverticulosis of large intestine without perforation or abscess without bleeding K57.30 and Other hemorrhoids K64.8 Assessments Encounter Date Diagnosis (ICD Code) Assessment Notes Treatment Notes Treatment Clinical Notes Section Notes 2024 Colon cancer screening (ICD-10 - Z12.11) 2024 Colon polyps (ICD-10 - K63.5) 2024 Diverticulosis of large intestine without perforation or abscess without bleeding (ICD-10 - K57.30) 2024 Other hemorrhoids (ICD-10 - K64.8) Plan Of Treatment No Information Progress Notes * APURVA RAYOOB:1955 (69 yo F)Acc No.[id number]:2024 COLON WITH MAC Patient: AUNG BROWN Provider: Deandre Olvera MD :1955 A ge:69 Y S ex:Female Date:2024 [facility] Pcp:Paco Noguera Subjective: * Chief Complaints: * S creening Assessment: * Assessment: 1. C olon cancer screening - Z12.11 (Primary) 2 . C olon polyps - K63.5? 3. D iverticulosis of large intestine without perforation or abscess without bleeding - K57.30 4 . O ther hemorrhoids - K64.8 Plan: * Procedure Codes: 4 5385 LESION REMOVAL COLONOSCOPY, Modifiers: 33 Billing Information: * Procedure Codes: 15305 LESION REMOVAL COLONOSCOPY. Modifiers: 33 * The named appointment provid er may or may not be the originator of this progress note, and it is not deemed complete until electronically signed by the appointment provider. Sign off status: Pending * Provider: Deandre Olvera MD Date: 0 2024 Generated for Lonny noel/Edgar/Tiannaitting on: 1 04/28/2024 05:33 PM EST
[2025-02-25 15:17] VITALS: BP 118/80; PULSE 87; O2SAT 97; BMI 23.9
--- NOTE | 2025-02-25 15:17 | AM.OFFWIN_ITS ---
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 Patient Tobacco Use Status: Never used Tobacco Allergies amoxicillin (Augmentin) Allergy (Intermediate, Verified 02/25/25 15:20) rash clavulanic acid (Augmentin) Allergy (Intermediate, Verified 02/25/25 15:20) rash Penicillins (PENICILLINS) Allergy (Intermediate, Verified 02/25/25 15:20) RASH/HIVES HPI HPI Comments History of Present Illness Details History - The patient is a 69-year-old female pr esenting for clogged ears. - She reports that her ears were checked by her primary care provider in December and were found to be normal. - She has decrease hearing in both ears and some pressure. - She has no discharge - She denies cold symptoms, fever, chill s, DAMON, dizziness, or syncope. Physical Exam General: Cooperative, healthy appearing, comfortable, no acute distress and well developed Head: Normal to inspection Ears: External ears normal bilaterally. No tragus or mastoid tenderness noted. Cerumen noted in the canal. TM's not visualized. Respiratory: Normal respiratory effort and able to speak in complete sentences. Clear to auscultation bilaterally. No w/r/r noted. Cardiac: RRR, no m/r/g noted. Normal S1 and S2 noted. No m/r/g noted. Skin: No rashes or lesions noted Neuro: Patient oriented x3 Patient was informed and verbally consented to the use of an ambient scribe for clinic note documentation during this visit. [facility] Medical History No pertinent past medical history Surgical History H/O colonoscopy Social History Are you a primary acute care nurse practitioner to a significant other at home: No Do you presently have visiting nurse or other home services: No Alcohol intake: never Patient Tobacco Use Status: Never used Tobacco Second Hand Smoke Exposure: No Review of Systems Const All systems reviewed & are unremarkable except as noted in HPI and below Physical Exam Vital Signs: Last Vital Signs Pulse 87 02/25/25 15:17 BP 118/80 02/25/25 15:17 Pulse Ox 97 02/25/25 15:17 Oxygen Delivery Method Room Air 02/25/25 15:17 BMI result Body Mass Index 23.9 Assessment & Plan Assessment & Plan (1) Cerumen impaction: Code(s): H61.20 - Impacted cerumen, unspecified ear Qualifiers: Laterality: bilateral Qualified Code(s): H61.23 - Impacted cerumen, bilateral Plan Most likely cerumen impaction Plan - An ear procedure will be performed by another staff member. - The patient was informed about a service for ear checks every two months. - Will re-evaluate the patient's ears following the procedure. - can use debrox drops OTC - follow up with PCP Orders: Orders AMB Casting/Splints Today H61.20 - Impacted cerumen, unspecified ear Coding Level of Care Code Est Pt Level 3 (03963) Diagnoses Bilateral impacted cerumen H61.23 Laterality: bilateral
--- OUTSIDE RECORDS SUMMARY | 2025-02-25 17:33 | XMS_ITS | Patient Health Record ---
Author Organization [facility] Address [address] [place] [address] Care Team Providers Care Cyber Security Name Role Phone Paco Noguera Primary Care Provider Tj Richmond [phone] Allergies Allergen (clinical drug ingredient) Drug/Non Drug Allergy documented on EMR Reaction Allergy Type Onset Date Status Penicillin Unknown Drug Allergy Active Results Component Value Reference Range Notes Pathology (Not yet reviewed by provider) Interpretation: Performing Lab:[facility], [address] [place] [id number] Notes/Report: Reason For Referral No Information Social History Social History Additional Details Category Social Info Options Details Miscellaneous: Marital status: 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 Section Notes: Nonsmoker; no sig alcohol Nonsmoker; no sig alcohol Problems Problem Type SNOMED Code ICD Code Onset Dates Problem Status W/U Status Risk Notes Problem Colon cancer screening (479017941) Colon cancer screening (Z12.11) Active confirmed Problem Pre-procedure evaluation check (261466888) Encounter for other preprocedural examination (Z01.818) Active confirmed Problem Diverticular disease of colon (398677958) Diverticulosis of large intestine without perforation or abscess without bleeding (K57.30) Active confirmed Encounters Encounter Location Date Provider [place] [facility] [place] [address] [place] [address] [id number] 2024 Tj Olvera Colon cancer scree sia [...] hemorrhoids (ICD-10 - K64.8) Plan Of Treatment Pending Test Test Name Order Date Pathology 2024 Future Test Test Name Order Date COLONOSCOPY 08/01/2013 COLONOSCOPY 02/23/2024 Insurance Providers Payer Name Payer Address Payer Phone Subscriber Number Group Number Insured Name Patient Relationship to Insured Coverage Start Date Coverage End Date [address] [facility] [place] [address] [id number] AUNG RAYO Self - patient is the insured Medical (General) History Medical History History ICD Code Denies [place],DM,CVA,Lung disease,renal dise ase Reports a negative colonoscopy at age 49 Negative screening colonoscopy in 11/2013 Surgical History Surgery Date(Month/Year) Removal of a Fallopian tube
--- OUTSIDE RECORDS SUMMARY | 2025-02-25 17:33 | XMS_ITS | Clinical Summary ---
Author Organization [facility] Address [address] [address] Phone Care Team Providers Care Assistant Boiler Operator Name Role Phone Pcp, Unknown Primary Care Provider Unavailabl e Family History Medical History Relation Comments CV disease Father 2 Cancer Father 2 Hypertension Father 2 Cancer Maternal Grandmother 2 Cancer Mother 2 Relation Status Comments Father 1 Father 2 Maternal Grandmother 1 Maternal Grandmother 2 Mother 1 Mother 2 Social History Tobacco Use Types Packs/Day Years Used Date Smoking Tobacco: Never Assessed Education Answer Date Recorded Are you interested in more education? Not on jose david e 07/02/2022 Are you concerned about learning? Not on file 07/02/2022 No 07/02/2022 No 07/02/2022 Digital Access Answer Date Recorded No 07/31/2022 No 07/31/2022 Reliable internet access at home? Not on file 07/31/2022 Device with a working camera? Not on file Comments Unknown Sex and Gender Information Value Date Recorded Sex Assigned at Not on file Legal Sex Female 9:55 PM EDT Gender Identity Not on file Sexual Orientation Not on file Last Filed Vital Signs Vital Sign Reading Time Taken Comments Blood Pressure 120/60 05/02/2015 4:10 AM EST Pulse 88 05/02/2015 4:10 AM EST Temperature 36.6 C (97.8 F) 05/02/2015 4:10 AM EST Respiratory Rate 16 05/02/2015 4:10 AM EST Oxygen Saturation - - Inhaled Oxygen Concentration - - Weight 70.3 kg (155 lb) 05/02/2015 4:10 AM EST Height 157.5 cm (5' 2 ) 05/02/2015 4:10 AM EST Body Mass Index 28.35 05/02/2015 4:10 AM EST Plan of Treatment Health Maintenance Due Date Last Done Comments Adult Td,Tdap Booster 1955 LIPID PANEL 1955 DEPRESSION SCREENING 1967 SMOKING Hx and SMOKELESS TOBACCO SCREENING 1968 HEPATITIS C SCREENING 1973 COLOGUARD 2000 FIT TEST 2000 FOBT 2000 SIGMOIDOSCOPY 2000 VIRTUAL COLONOSCOPY 2000 PNEUMOCOCCAL VACCINES (50+ years) (1 of 1 - PCV) 2005 MAMMOGRAM 08/29/2016 08/29/2014 OSTEOPOROSIS SCREENING INITI AL (ONE-TIME) 2020 COLONOSCOPY 11/24/2023 11/23/2013 COLORECTAL CANCER SCREENING 11/24/2023 INFLUENZA VACCINE (#1) 2024 9, 02/23/2018, 11/25/2016 COVID-19 VACCINE (2 - 2024-2 6 season) 2024 04/28/2020 RSV VACCINE (1 - 1-dose 75+ series) 2030 ZOSTER VACCINES Completed 05/05/2019, 02/27/2019 HEPATITIS A VACCINES Aged Out No long er eligible based on patient's age to complete this topic HIB VACCINES Aged Out No longer eligi ble based on patient's age to complete this topic MENINGOCOCCAL VACCINES (ACWY) Aged Out No longer eligible based on patient's age to complete this topic MENINGOCOCCAL VACCINES (B) Aged Out N o longer eligible based on patient's age to complete this topic Medical Devices Not on file Insurance [facility] [employer] [facility] [facility] [employer] [facility] Member Subscriber Plan / Payer (Ef fective 2017-Present) Name:Elaina Perez Relation to Subscriber:Self Name:Elaina Perez Payer ID:[id number] (NAIC) Group ID:[id number] Type:HMO [address] [facility] [employer] [facility] UNITED PPO [facility] UNITED PPO [facility] UNITED PPO [facility] O Care Teams Assistant Boiler Operator Relationship Specialty Start Date End Date Pcp, Unknown PCP - General 12/01/18 Additional Source Comments The information contained in this document represents components of the legal health record. It is not the complete legal health record.[facility]
--- OUTSIDE RECORDS SUMMARY | 2025-02-25 17:33 | XMS_ITS | Patient Health Record ---
[facility] Address [address] [place] [address] Care Team Providers Care Teletypist Name Role Phone Paco Noguera MD Primary Care Provider Tiffani Gardner Unavailable [phone] Allergies Allergen (clinical drug ingredient) Drug/Non Drug [...] Problem Status W/U Status Risk Notes Problem Acquired hammer toe of right foot (8288021105007 105) Hammer toe of right foot (M20.41) Active confirmed Problem Acquired hammer toe of left foot (8574823161402 103) Hammer toe of left foot (M20.42) Active confirmed Plan Of Treatment No Information Insurance Providers Payer Name Payer Address Payer Phone Subscriber Number Group Number Insured Name Patient Relationship to Insured Coverage Start Date Coverage End Date [employer] [address] [place] [address] [id number] J Luis Mahoney Spouse - patient is the spouse of the insured Medical (General) History Medical History History ICD Code Measles Mumps Chicken pox
--- OUTSIDE RECORDS SUMMARY | 2025-02-25 17:34 | XMS_ITS | Data Portability ---
Author Organization [facility] Address [address] [place] [address] Care Team Providers Care Real Estate Listing Consultant Name Role Phone PATRICIA [facility] Primary Care Provide r Assessment No assessment recorded. Plan of Treatment Reminders Order Date Submit Date Provider Last Modified By Organization Details Last Modified Time Details Appointments None recorded. Lab None recorded. Referral None recorded. Procedures None recorded. Surgeries None recorded. Imaging None recorded. Medication Orders Bactrim DS 800 mg-160 mg tablet 2022 023 [facility], [address] [place] [address], [phone], 3 18:40:35 mupirocin 2 % topical ointment 2022 023 [facility], [address] [place] [address], [phone], 3 18:40:35 Patient TargetsNo targets recorded. Patient Instructions Encounter Date Encounter Id Patient Instructions Last Modified By Organization Details Last Modified Time 09/18/2022 [id number] skin abscess: care instructions [email or web address] Not available [...] Name and Address Organization Details Recorded Time 360564 Product containin g penicilli n (product) medicatio n angioedem a Not available Not available 09/18/2022 [id number] SNOMED DIXON mittal [place] [facility] 3 17:28:31 Medications Name Sig Start Date Stop [...] numeric rating [Score] - Reported Oxygen saturation Heart rate Respiratory rate Body temperature Systolic And Diastolic Provider Name and Address Organization Details Last Updated DateTime 3 160.02 cm 28.3 kg/m2 88595.7 8 g 4 99 % 89 /min 16 /min 98.2 [degF] 134/81 mm[Hg] DIXONPamela MCCOY - [facility] 3 17:31:39 Social History Question Answer Notes LastModified by [employer] Details LastModified Time Tobacco Smoking Status Never Smoker DIXON OLVINNADINE [place] [facility] 09/18/2022 17:29:20 Have You Recently Traveled Abroad? No Information not available 09/18/2022 Sex: Unknown Functional Status Question Answer Note LastModified by [employer] Details LastModified Time Do you use any illicit or recreational drugs? No Information not available 09/18/2022 Do you or have you ever used any other forms of tobacco or nicotine? No Information not available 09/18/2022 What is your level of alcohol consumption? None Information not available 09/18/2022 Are you currently employed? Yes Information not available 09/18/2022 Mental Status None recorded. Family History Relationship [...] [facility] 09/18/2022 17:29:30 Pneumococcal conjugate PCV20, polysaccharide OBX224 conjugate, adjuvant, PF 2 completed DIXON OLVIN [...] Diagnosis SNOMED-CT Code Diagnosis ICD10 Code Diagnosis IMO Codes Diagnosis Note [id number] _[facility] [address] [address] 10/19/2015 11:07:55 10/19/2015 11:52:00 [id number] [place] [address] [address] 09/18/2022 17:14:59 09/18/2022 18:18:21 Abscess of skin and/or subcutaneous tissue [id number] L02.91 New abscess with surroundin g celulitis. [...] Concerns Section Related Observation LastModified by Organization Detai ls LastModified Time None Recorded Concern Status LastModified by Organization Details LastModified Time None Recorded Advance Directives Directive None Recorded Payers Insurance Date Sequence Insurance Name Policy Number Policy Smith Covered Member ID Smith Member ID Guarantor Name 09/20/2022 2 [facility] - OPEN ACCESS PLUS [id number] Elaina Blanca Perez [id number] Elainakassidy Perez 09/18/2022 2 [employer] (PPO) Elaina Perez [id number] Elaina Blanca Perez 09/20/2022 1 [facility]-[employer] - CIGNA - MULTIPLAN (PPO) Elaina Perez [id number] Elainakassidy Perez 09/20/2022 2 [facility]-[employer] - [place] - [place] (PPO) J Luis Mahoney [id number] Elaina Perez Notes Date Note Type Note Provider Name and Address Organization Details Recorded Time 09/18/2022 text/html AbscessReported by [id number] yo female c/o red, swollen bump under left armpit x 3 d bikes to work every day and noticed it a few days agored, warm and tenderno bleeding or d/cno f/c/n/v no OTC meds but tried warm compresses reports last mammogram was 2-3 m ago ROS as noted in the HPI Jamar Everett DO [address] [place], [phone], [place] - [facility] 09/18/2022 18:38:05 OBGyn Episode No OBEpisode recorded.
== END 2025-02-25 16:26 | disposition home or self-care (01) ==
PROVIDERS: PCP Family Medicine; Visit Provider Physician Assistant Medical
DX: H61.23 Impacted cerumen, bilateral (principal)